=== PATIENT | male | born 1960 | race Caucasian/White ===

== ENCOUNTER 2018-07-24 15:46 | Emergency (ER) | payer OTHER ==
--- NOTE | 2018-07-24 15:50 | PDOC ---
Rapid Medical Evaluation Time Seen by Provider: 07/24/18 15:48 Medical Evaluation: Allergies Allergy/AdvReac Type Severity Reaction Status Date / Time No Known Allergies Allergy Verified 01/21/18 16:26 07/24/18 15:48 I performed a brief in-person evaluation of this patient. Chief complaint: Left ankle pain s/p stepping in label sewer hole Pertinent physical exam findings: Tenderness at medial malleolus, unable to bear weight I have ordered the following: XR Patient to proceed to the ED for further evaluation. Discharge Disposition - Diagnosis Ankle injury Qualifiers: Encounter type: initial encounter Laterality: left Qualified Code(s): S99.912A - Unspecified injury of left ankle, initial encounter - Referrals - Patient Instructions - Post Discharge Activity
[2018-07-24 15:53] VITALS: BP 145/83; PULSE 88; TEMP 98.9; BMI 41.6
--- NOTE | 2018-07-24 17:23 | PDOC ---
History of Present Illness - General Chief Complaint: Injury Stated Complaint: LT ANKLE PAIN Time Seen by Provider: 07/24/18 15:48 History Source: Patient Exam Limitations: No Limitations - History of Present Illness Initial Comments: 07/24/18 17:23 58 year old male with no medical or surgical history presents with pain to left ankle after twisted ankle this am. Patient states he fell onto feet, no head strike. Complaining of pain in left foot with weight bearing. 07/24/18 17:29 Occurred: reports: this morning Severity: Yes: mild Lower Extremity Pain Location: left: ankle Method of Injury: Yes: fell, twisted Modifying Factors: improves with: immobilization, pain medication Lower Ext. Injury Location - Specific Injury Location Hips: bilateral hip: no evidence of injury Legs: bilateral: normal inspection Knees: bilateral no evidence of injury Ankle: left pain Foot: bilateral foot no evidence of injury Extremity Pain Location - Extremity Pain Location Extremity Pain Locations: left: ankle Past History - Travel Traveled outside of the country in the last 30 days: No Close contact w/someone who was outside of country & ill: No - Past Medical History Allergies/Adverse Reactions: Allergies Allergy/AdvReac Type Severity Reaction Status Date / Time No Known Allergies Allergy Verified 07/24/18 15:48 Home Medications: Ambulatory Orders Ibuprofen 800 mg PO TID PRN #20 tablet 01/21/18 Ibuprofen 600 mg PO QID #20 tablet 07/24/18 CVA: No COPD: No - Immunization History Immunization Up to Date: Yes - Suicide/Smoking/Psychosocial Hx Smoking Status: No Smoking History: Never smoked Have you smoked in the past 12 months: No Number of Cigarettes Smoked Daily: 0 Hx Alcohol Use: No Drug/Substance Use Hx: No Substance Use Type: None Hx Substance Use Treatment: No Review of Systems - Review of Systems Able to Perform ROS?: Yes Is the patient limited Icelandic proficient: No Constitutional: No: Chills, Fever HEENTM: No: Nose Pain, Throat Pain, Throat Swelling Respiratory: No: Orthopnea, Shortness of Breath, Wheezing, Productive cough Cardiac (ROS): No: Chest Pain, Lightheadedness ABD/GI: No: Poor Appetite, Indigestion : No: Incontinence, Pain Musculoskeletal: Yes: Joint Pain. No: Joint Swelling Integumentary: No: Bruising, Erythema Neurological: No: Headache, Numbness, Paresthesia *Physical Exam - Vital Signs Last Vital Signs Temp Pulse Resp BP Pulse Ox 98.9 F 88 22 H 145/83 97 07/24/18 15:50 07/24/18 15:50 07/24/18 15:50 07/24/18 15:50 07/24/18 15:50 - Physical Exam General Appearance: Yes: Nourished, Appropriately Dressed HEENT: positive: EOMI, MONA, Pharynx Normal Neck: positive: Supple. negative: Lymphadenopathy (R), Lymphadenopathy (L) Respiratory/Chest: positive: Lungs Clear, Normal Breath Sounds Cardiovascular: positive: Regular Rhythm, Regular Rate Gastrointestinal/Abdominal: negative: Tenderness Extremity: positive: Normal Capillary Refill, Other (FRom of left ankle, no swelling, no redness) Neurologic: positive: switchboard receptionist II-XII NML intact, Fully Oriented, Alert Moderate Sedation - Procedure Monitoring Vital Signs: Procedure Monitoring Vital Signs Temperature 98.9 F 07/24/18 15:50 Pulse Rate 88 07/24/18 15:50 Respiratory Rate 22 H 07/24/18 15:50 Blood Pressure 145/83 07/24/18 15:50 O2 Sat by Pulse Oximetry (%) 97 07/24/18 15:50 Medical Decision Making - Medical Decision Making 07/24/18 17:30 58 year old male with no medical or surgical history presents with pain to left ankle after twisted ankle this am Plan xray of left ankle foot analgesia wet read: negative by me request call back for final read rx: ibuprofen *DC/Admit/Observation/Transfer Diagnosis at time of Disposition: Ankle injury Qualifiers: Encounter type: initial encounter Laterality: left Qualified Code(s): S99.912A - Unspecified injury of left ankle, initial encounter - Discharge Dispostion Disposition: HOME Condition at time of disposition: Good Decision to Admit order: No - Prescriptions Prescriptions: Ibuprofen 600 mg PO QID #20 tablet - Referrals Schedule a call back: final xray read - Patient Instructions Printed Discharge Instructions: Ankle Sprain - Post Discharge Activity Forms/Work/School Notes: Back to Work
[2018-07-24] MEDS ORDERED: IBUPROFEN 600 MG TABLET (FP) PO ONE ×2 (17:32→17:34)
== END 2018-07-24 17:42 | disposition home or self-care (01) ==
LOC: JERFT 15:46
DX: S93.402A Sprain of unspecified ligament of left ankle, initial encounter (principal); W17.89XA Other fall from one level to another, initial encounter; Y93.01 Activity, walking, marching and hiking; Y92.414 Local residential or business street as the place of occurrence of the external cause; Y99.8 Other external cause status
CPT/HCPCS: 73610-TC-LT-FY; 73630-TC-LT; 99281-25

== ENCOUNTER 2021-01-10 12:23 | Emergency (ER) | payer SELFPAY ==
[2021-01-10 12:49] VITALS: BP 132/81; PULSE 76; TEMP 98.1; BMI 41.1
== END 2021-01-10 14:12 | disposition home or self-care (01) ==
LOC: JERFT 12:23
DX: B35.3 Tinea pedis (principal)
CPT/HCPCS: 73630-TC-LT; 99283-25

== ENCOUNTER 2023-12-25 17:12 | Inpatient (IN) | payer OTHER ==
[2023-12-25] MEDS ORDERED: ACETAMINOPHEN INJECTION 100 ML IVPB ONE (18:17)
[2023-12-25] MEDS ORDERED: ONDANSETRON 4 MG/2 ML VIAL ONE (18:17)
[2023-12-25] MEDS ORDERED: MAG HYDROX/AL HYDROX/SIMETH 30 ML UNIT-DOSE CUP ONE (18:17)
[2023-12-25] MEDS ORDERED: FAMOTIDINE 20 MG/50 ML IVPB 20 MG/50 ML MG IVPB ONE (18:17)
[2023-12-25] MEDS: ONDANSETRON 4 MG/2 ML VIAL IVPUSH ONE (18:34)
[2023-12-25] MEDS: FAMOTIDINE 20 MG/50 ML IVPB 20 MG/50 ML MG IVPB ONE (18:34)
[2023-12-25] MEDS: MAG HYDROX/AL HYDROX/SIMETH 30 ML UNIT-DOSE CUP PO ONE (18:34)
[2023-12-25] MEDS: ACETAMINOPHEN 1000 MG/100 ML BAG IVPB ONE (18:34)
[2023-12-25 18:39] LABS: INR 1.05 (0.83-1.09); PROTHROMBIN TIME (PATIENT) 12.1 SEC (9.7-13.0)
[2023-12-25 18:42] LABS: ACTIVATED PTT 31.6 SECONDS (25.2-36.5)
[2023-12-25 18:56] LABS: POTASSIUM 3.9 mmol/L (3.5-5.1)
[2023-12-25 18:59] LABS: ALBUMIN 3.6 g/dl (3.4-5.0); CALCIUM 8.3 mg/dL (8.5-10.1)
[2023-12-25 19:02] LABS: BLOOD UREA NITROGEN 24.8 mg/dL (7-18)
[2023-12-25] MEDS: SODIUM CHLORIDE 1,000 ML IV SCH (19:03)
[2023-12-25 19:04] LABS: CREATININE 1.2 mg/dL (0.55-1.3)
[2023-12-25 19:05] LABS: TOT PROT 7.4 g/dl (6.4-8.2)
[2023-12-25 19:26] LABS: BASO % 0.1 % (0-2.0); EOS % 0.1 % (0-4.5); HEMATOCRIT 48.1 % (35.4-49); HEMOGLOBIN 16.7 GM/dL (11.7-16.9); LYMPH % 3.9 % (8-40); MCH 32.2 pg (25.7-33.7); MCHC 34.7 g/dl (32.0-35.9); MEAN CELL VOLUME 92.8 fl (80-96); MEAN PLT VOLUME 9.6 fl (7.5-11.1); MONO % 4.7 % (3.8-10.2); NEUT % 91.2 % (42.8-82.8); PLATELET COUNT 158 10^3/uL (134-434); RBC 5.18 M/mm3 (4.00-5.60); RDW 15.3 % (11.9-15.9); WHITE BLOOD COUNT 9.6 K/mm3 (4.0-10.0)
[2023-12-25 19:28] LABS: EPI CELLS 1 /uL (0-25.1); HYALINE CASTS 0 /uL (0-3.1); PH,URINE 5.5 (5.0-8.0); URINE APPEARANCE CLEAR; URINE BACTERIA 2 /uL (0-1359); URINE BILIRUBIN NEGATIVE (NEGATIVE); URINE COLOR YELLOW; URINE GLUCOSE (UA) NEGATIVE (NEGATIVE); URINE KETONE NEGATIVE (NEGATIVE); URINE LEUK ESTERASE NEGATIVE (NEGATIVE); URINE NITRITE NEGATIVE (NEGATIVE); URINE PROTEIN NEGATIVE (NEGATIVE); URINE RBC 17 /uL (0-23.9); URINE UROBILINOGEN 0.2 mg/dL (0.2-1.0); URINE WBC 4 /uL (0-25.8)
[2023-12-25 22:45] LABS: ANISOCYTOSIS 0; MACROCYTOSIS 0; PLATELET ESTIMATE NORMAL
[2023-12-26] MEDS ORDERED: AZITHROMYCIN IVPB 500 MG/250 ML BAG IVPB ONE (00:02)
[2023-12-26] MEDS ORDERED: CEFTRIAXONE 1 GM/50 ML BAG ONE (00:02)
[2023-12-26] MEDS: CEFTRIAXONE 1 GM in DEXTROSE 5%-WATER - 100 ML IVPB ONE (00:27)
[2023-12-26] MEDS: AZITHROMYCIN IVPB 500 MG in DEXTROSE 5%-WATER - 250 ML IVPB ONE (00:30)
[2023-12-26] MEDS ORDERED: ACETAMINOPHEN 1000 MG/100 ML BAG IVPB PRN (03:33)
[2023-12-26] MEDS ORDERED: ONDANSETRON 4 MG/2 ML VIAL IVPUSH PRN (03:33)
[2023-12-26] MEDS: LACTATED RINGERS SOLUTION 1,000 ML/1,000 ML INFUS.BAG IV SCH (03:53)
[2023-12-26 07:24] LABS: HEMATOCRIT 45.7 % (35.4-49); HEMOGLOBIN 15.5 GM/dL (11.7-16.9); MCH 31.9 pg (25.7-33.7); MEAN CELL VOLUME 93.9 fl (80-96); MEAN PLT VOLUME 9.3 fl (7.5-11.1); PLATELET COUNT 109 10^3/uL (134-434); RBC 4.87 M/mm3 (4.00-5.60); RDW 15.1 % (11.9-15.9); WHITE BLOOD COUNT 5.6 K/mm3 (4.0-10.0)
[2023-12-26 07:38] LABS: POTASSIUM 3.7 mmol/L (3.5-5.1)
[2023-12-26 07:40] LABS: ALBUMIN 3.2 g/dl (3.4-5.0); BLOOD UREA NITROGEN 20.4 mg/dL (7-18); CALCIUM 7.9 mg/dL (8.5-10.1); MAGNESIUM 1.9 mg/dL (1.8-2.4)
[2023-12-26 07:43] LABS: CREATININE 1.1 mg/dL (0.55-1.3)
[2023-12-26 07:45] LABS: BILIRUBIN,TOTAL 0.7 mg/dL (0.2-1); TOT PROT 6.6 g/dl (6.4-8.2)
[2023-12-26] MEDS: ENOXAPARIN NA (PORCINE) 40 MG/0.4 ML DISP.SYRIN SQ SCH (12:13)
[2023-12-26 12:48] VITALS: BMI 31.3
[2023-12-26] MEDS: KETOCONAZOLE 2% CREAM - 60GM TUBE TP SCH (15:09)
[2023-12-26] MEDS: NYSTATIN 100,000 UNIT/GM TOPICAL CREAM 15 GM TUBE TP SCH (22:00)
[2023-12-26] MEDS: ATORVASTATIN CA 20 MG TABLET (FP) PO SCH (22:00)
[2023-12-27 10:30] LABS: HEMATOCRIT 45.9 % (35.4-49); HEMOGLOBIN 15.7 GM/dL (11.7-16.9); MCH 32.1 pg (25.7-33.7); MCHC 34.3 g/dl (32.0-35.9); MEAN CELL VOLUME 93.5 fl (80-96); MEAN PLT VOLUME 9.1 fl (7.5-11.1); PLATELET COUNT 128 10^3/uL (134-434); RBC 4.91 M/mm3 (4.00-5.60); RDW 14.7 % (11.9-15.9); WHITE BLOOD COUNT 5.1 K/mm3 (4.0-10.0)
[2023-12-27 10:45] LABS: POTASSIUM 3.7 mmol/L (3.5-5.1)
[2023-12-27 11:14] LABS: ALBUMIN 3.3 g/dl (3.4-5.0); CALCIUM 8.6 mg/dL (8.5-10.1); MAGNESIUM 2.2 mg/dL (1.8-2.4)
[2023-12-27 11:15] LABS: BLOOD UREA NITROGEN 15.1 mg/dL (7-18)
[2023-12-27 11:17] LABS: CREATININE 1.1 mg/dL (0.55-1.3)
[2023-12-27 11:19] LABS: BILIRUBIN,TOTAL 0.6 mg/dL (0.2-1); TOT PROT 7.1 g/dl (6.4-8.2)
[2023-12-27] MEDS: PANTOPRAZOLE 20 MG TABLET PO SCH (11:25)
[2023-12-27] MEDS: ASPIRIN COATED 81 MG TABLET.EC PO SCH (11:25)
[2023-12-27 13:47] VITALS: BP 113/73; PULSE 65; RESP 20; TEMP 98.2
== END 2023-12-27 18:24 | disposition home or self-care (01) | DRG 392 ==
LOC: JER 17:12 → JERBED 21:20 → J7W 12-26 10:03
PROVIDERS: ADMIT Internal Medicine; ATTEND Internal Medicine
DX: A08.39 Other viral enteritis (principal); G45.9 Transient cerebral ischemic attack, unspecified; R47.01 Aphasia; B35.3 Tinea pedis; R50.9 Fever, unspecified; R91.1 Solitary pulmonary nodule; R91.8 Other nonspecific abnormal finding of lung field
CPT/HCPCS: 0241U-QW; 36415; 70450-TC; 70551-TC; 71045-TC-FY; 71250-TC; 80053; 80061; 81003; 82438; 82550; 82553; 82710; 82962; 83036; 83605; 83735; 83986; 84100; 84302; 84484; 84999; 85025; 85027; 85610; 85730; 86850; 86900; 86901; 87040; 87045; 87046; 87205; 87899; 93005; 93010; 93880-TC; 93971-TC; 99291; J0131